=== PATIENT | male | born 1955 | race Two or more races ===

== ENCOUNTER → 2024-06-19 | Outpatient (CLI) | payer MEDICARE, MEDICAID, SELFPAY ==
[2024-06-19 12:01] LABS: Basophils % (Auto) 1 % (0-2.5); Eosinophils # (Auto) 0.2 Thou/mm3 (0.0-0.5); Eosinophils % (Auto) 3 % (0-10); Hematocrit 37.7 % (41.0-53.0); Hemoglobin 12.5 g/dL (13.5-16.0); Immature Granulocytes % (Auto) 1 % (0-0); Immature Granulocytes Auto 0.04 Thou/mm3 (0.00-0.00); Lymphocytes # (Auto) 1.7 Thou/mm3 (1.0-4.8); Lymphocytes % (Auto) 24 % (10-50); Mean Corpuscular HGB Conc 33.2 g/dl (31.0-37.0); Mean Corpuscular Hemoglobin 32.1 pg (25.0-35.0); Mean Corpuscular Volume 97 fL (80-100); Monocytes # (Auto) 0.5 Thou/mm3 (0.0-0.8); Monocytes % (Auto) 7 % (0-12); Neutrophils # (Auto) 4.8 Thou/mm3 (1.8-7.7); Neutrophils % (Auto) 65 % (37-80); Nucleated Red Blood Cell % 0 /100 WBC (0); Platelet Count 194 Thou/mm3 (140-440); RDW Standard Deviation 47.5 fL (35.1-43.9); White Blood Count 7.3 Thou/mm3 (3.8-10.6)
[2024-06-19 12:09] LABS: Glucose Estimated Average 140 mg/dL (80-131); Hemoglobin A1C 6.5 % Hgb (4.8-6.0)
[2024-06-19 12:23] LABS: Alanine Aminotransferase 14 U/L (10-49); Albumin, Serum 4.5 gm/dL (3.4-4.8); Albumin/Globulin Ratio 1.6 (1.2-2.2); Alkaline Phosphatase 190 U/L (46-116); Anion Gap 7 (7-16); Aspartate Amino Transferase < 8 U/L (0-34); BUN/Creatinine Ratio 5 Ratio (12-20); Bilirubin,Total 0.3 mg/dL (0.3-1.2); Blood Urea Nitrogen 44 mg/dL (9-23); Calcium 10.5 mg/dL (8.3-10.6); Calcium (Corrected) 10.5 mg/dL (8.5-10.1); Chloride 97 mMol/L (98-107); Creatinine (Component) 9.2 mg/dL (0.6-1.3); Globulin 2.8 gm/dL (2.3-3.5); Glucose 96 mg/dL (74-106); Osmolality,Calculated 281 (275-295); Potassium 5.6 mMol/L (3.4-5.1); Sodium 135 mMol/L (136-145); Total Protein 7.3 gm/dL (5.7-8.2); eGFR 6 See Note
== END | disposition home or self-care (01) ==
LOC: COPL 11:17
PROVIDERS: PCP Physician Assistant; Referring Provider Specialist; Visit Provider Specialist
DX: K40.30 Unilateral inguinal hernia, with obstruction, without gangrene, not specified as recurrent (principal)
CPT/HCPCS: 36415; 80053; 83036; 85025

== ENCOUNTER 2025-07-06 17:01 | Emergency (ER) | payer OTHER, MEDICAID, SELFPAY ==
[2025-07-06] VITALS (10 sets, daily range): BP systolic 151–181; BP diastolic 66–86; PULSE 70–90; RESP 14–20; TEMP 36.6–37.2; O2SAT 95–100; BMI 31.7
--- NOTE | 2025-07-06 17:10 | PD.EDHA ---
ED Headache RME/HPI General Chief Complaint: Headache Stated Complaint: HEADACHE Time Seen by Provider: 07/06/25 17:07 Arrival date/time: 07/06/25 17:01 Limitations: no limitations RME / HPI RME / HPI Narrative: DR. CHILDS MAIN ED EVALUATION: 69-year-old male presents with headache, hypertension, and right eye visual loss since Tuesday. He reports he was evaluated by a doctor and then by a neurologist and was told he has a retinal bleed behind his right eye. He reports headache associated with the visual changes. Blood glucose on arrival is 96. No other complaints. He has a history of hypercholesterolemia, hypertension, and diabetes. He lost vision in his left eye many years ago. Related Data Home Medications ?Medication ?Instructions ?Recorded ?Confirmed evolocumab 140 mg/mL subcutaneous 420 mg subcut QOWEEK 06/22/24 06/25/24 syringe (Repatha Syringe) insulin degludec 100 unit/mL (3 10 unit subcut HS 06/22/24 06/25/24 mL) subcutaneous pen (Tresiba FlexTouch U-100 insulin) sucroferric oxyhydroxide 500 mg 500 mg PO TID 06/22/24 06/25/24 chewable tablet (Velphoro) Previous Rx's ?Medication ?Instructions ?Recorded hydrocodone 10 mg-acetaminophen 1 tab PO Q6H PRN pain #28 tabs 06/25/24 325 mg tablet acetaminophen 300 mg-codeine 30 mg 2 tab PO Q8H PRN pain #20 tabs 07/06/25 tablet Allergies Allergy/AdvReac Type Severity Reaction Status Date / Time No Known Allergies Allergy Verified 06/25/24 09:48 Review of Systems Review of Systems Systems Reviewed: All systems reviewed, normal except as documented Past Medical History Past Medical History CARDIAC: Positive Cardiac Disorders, Hypercholesterolemia and Hypertension (no taking med anymore per Dr) GASTROINTESTINAL: Positive Gastrointestinal Disorders and Obesity GENITOURINARY: Positive Genitourinary Disorders, Renal Disease and Dialysis (M/W/F) MUSCULOSKELETAL: Positive Musculoskeletal Disorders ENT: Positive Cataracts (SHAUN HAD SURG 2016) ENDOCRINE: Positive Endocrine Disorders and Diabetes Mellitus Type 2 HEMATOLOGIC: Positive Blood Disorders and Anemia (hx) OTHER HISTORY: Positive Hospitalization (07/24 FOR KIDNEY FAILURE DIAG), Chicken Pox, Measles and Cancer (prostate) Family History FAMILY HISTORY: Positive Family Cardiac Disorders (FATHER) and Family Surgery Surgical History SURGICAL: Positive Cardiac Surgery, Vascular Surgery (Left upper arm AV fistula) and Bowel Surgery ([id number] tumor removal and part of intestine removed) Social History SMOKING STATUS: Never smoker SUBSTANCE USE: does not use ALCOHOL: Never ED Exam General Limitations: Present no limitations General appearance: Present alert and in no apparent distress Head Head exam: Present atraumatic, normocephalic and normal inspection Eye Eye exam: Present other (right eye congestion and tenderness noted) ENT ENT exam: Present normal exam, normal oropharynx and mucous membranes moist Neck Neck exam: Present normal inspection, full ROM and trachea midline Chest Chest inspection: Present normal inspection and symmetric chest wall rise Respiratory Respiratory exam: Present normal lung sounds bilaterally Cardiovascular Cardiovascular exam: Present regular rate, normal rhythm and normal heart sounds Abdominal Exam Abdominal exam: Present soft and normal bowel sounds Extremities Exam Extremities exam: Present normal inspection and full ROM Back Exam Back exam: Present normal inspection and full ROM Neurological Exam Neurological exam: Present alert, oriented X3 and CN II-XII intact Psychiatric Psychiatric exam: Present normal affect and normal mood Skin Skin exam: Present warm, dry, intact and normal color Course Quality Measures none Orders Category Date Time Status EKG (ED ONLY) *Do not use* NOW Care 07/06/25 17:[address] head/brain wo con Stat Exams 07/06/25 17:[address] orbit BI wo con Stat Exams 07/06/25 17:35 Completed CXRP [XR chest 1V portable] Stat Exams 07/06/25 17:16 Completed EKG (ED Only) Stat Exams 07/06/25 17:16 Ordered BNP [B-Type Natriuretic Peptide] Stat Lab 07/06/25 17:10 Completed CBC [CBC] Stat Lab 07/06/25 17:10 Completed CMP [Comprehensive Metabolic Panel] Stat Lab 07/06/25 17:10 Completed PTT [Partial Thromboplastin Time] Stat Lab 07/06/25 17:10 Completed Prothrombin Time with INR Stat Lab 07/06/25 17:10 Completed Troponin I Stat Lab 07/06/25 17:10 Completed UA, C/S IF [Urinalysis, C/S if Indicated] Stat Lab 07/06/25 21:00 Completed VBG [Venous Blood Gas] Stat Lab 07/06/25 17:10 Completed ACETAMINOPHEN w/COD 300-30 [Tylenol w/Cod #3] Med 07/07/25 00:29 Discontinued 2 tab PO X1 ONE ACETAzolaMIDE SOD [Diamox Inj] Med 07/06/25 17:36 Discontinued 500 mg IVP X1 ONE Brimonidine Op Nelida 0.1% [Alphagan Op Nelida 0.1%] Med 07/06/25 17:36 Discontinued 1 drop RIGHT EYE X1 ONE Cyclopentolate Op Nelida 1% [Cyclogyl Op Nelida 1%] Med 07/06/25 17:14 Discontinued 1 drop BOTH EYES X1 ONE Morphine* Inj Med 07/06/25 21:39 Discontinued 4 mg IV X1 ONE TETRACAINE Op Nelida 0.5% [Pontocaine Op Nelida 0.5%] Med 07/06/25 17:14 Discontinued 1 drop BOTH EYES X1 ONE Timoptic Op Nelida 0.5% Med 07/06/25 21:00 Discontinued 1 drop RIGHT EYE BID hydrALAZINE INJ [Apresoline Inj] Med 07/06/25 17:16 Discontinued 20 mg IVP X1 ONE Vital Signs Vital signs: Vital Signs Temperature 98.1 F 07/06/25 17:04 Pulse Rate 78 07/06/25 17:04 Respiratory Rate 18 07/06/25 17:04 Blood Pressure 177/81 H 07/06/25 17:04 Pulse Oximetry (%) 100 07/06/25 17:04 Oxygen Delivery Method Room Air 07/06/25 17:04 Headache MDM Narrative MDM Narrative:: Lorelei Abdullahi am scribing for and in the presence of Dr. Childs. 69-year-old male with right eye vision loss, headache, and hypertension since Tuesday. Exam notable for right eye congestion and tenderness. Differential diagnoses include retinal bleed, acute glaucoma, and intracranial bleed. Impression is sudden vision loss. EKG#1: Interpreted by me: sinus rhythm, rate 81, right bundle branch block Plan is to check intraocular pressure, order CT of the head, and lower blood pressure. Patient stable for continued evaluation. Assessment for hypertensive emergency, retinal detachment, and vision loss. Plan to give the following medications: Acetazolamide, Brimonidine, Timoptic, Cyclopentolate, Tetracaine, and Hydralazine. 1800: Patient was signed out to Dr. Richards. Past medical, surgical, social and family history reviewed. Vitals and home medications reviewed. Results and treatment plan discussed. They will assume the care of the patient at this time and will follow the patient, pending remainder of diagnostic tests and final disposition. Patient data External records reviewed:: [facility] previous records and EMS form Clinical information provided by:: patient and EMS Social determinants that could affect healthcare access:: none Patient has the following chronic illnesses:: He has a history of hypercholesterolemia, hypertension, and diabetes. He lost vision in his left eye many years ago. How is presenting disease/condition affected by chronic disease/condition?: exacerbated by Evaluation data The following diagnostics were reviewed and interpreted by me:: lab results, radiology exam(s) and EKG tracing(s) (EKG#1: Interpreted by me: sinus rhythm, rate 81, right bundle branch block) Lab and/or radiology exams considered but not ordered:: none Interpretation Summary: See MDM narrative above. Medications / Prescriptions Medications or Prescriptions considered but not ordered:: none Medication administrations:: Medication Administration History Discontinued Medications Acetaminophen/Codeine Phosphate (Acetaminophen W/Cod 300-30 Tablet) 2 tab PO X1 ONE Stop: 07/07/25 00:30 Last Admin: 07/07/25 00:40 Dose: 2 tab Documented By: JOE Acetazolamide Sodium (Acetazolamide Sod 500 Mg Vial) 500 mg IVP X1 ONE Stop: 07/06/25 17:37 Last Admin: 07/06/25 18:16 Dose: 500 mg Documented By: GERRY Brimonidine Tartrate (Brimonidine Op Nelida 0.1% 5 Ml Btl) 1 drop RIGHT EYE X1 ONE Stop: 07/06/25 17:37 Last Admin: 07/06/25 18:16 Dose: 1 drop Documented By: GERRY Comments: MD administered at bedside Cyclopentolate HCl (Cyclopentolate Op Nelida 1% 2 Ml Btl) 1 drop BOTH EYES X1 ONE Stop: 07/06/25 17:15 Last Admin: 07/06/25 17:26 Dose: 1 drop Documented By: GERRY Comments: administered by MD at bedside Hydralazine HCl (Hydralazine Inj 20 Mg/Ml Vial) 20 mg IVP X1 ONE Stop: 07/06/25 17:17 Last Admin: 07/06/25 17:24 Dose: 20 mg Documented By: GERRY Morphine Sulfate (Morphine Sulf Inj 4 Mg/Ml Vial) 4 mg IV X1 ONE Stop: 07/06/25 21:40 Last Admin: 07/06/25 21:51 Dose: 4 mg Documented By: JOE Tetracaine HCl (Tetracaine Pf Op Nelida 0.5% 4 Ml Drpette) 1 drop BOTH EYES X1 ONE Stop: 07/06/25 17:15 Last Admin: 07/06/25 17:25 Dose: 1 drop Documented By: GERRY Timolol Maleate (Timolol Op Nelida 0.5% 5 Ml Btl) 1 drop RIGHT EYE BID DARYL Stop: 08/05/25 20:59 Last Admin: 07/06/25 22:13 Dose: 1 drop Documented By: JOE see above if any Consultations Consultation(s) initiated? (list below): No Diagnosis Differential diagnosis headache: other (retinal bleed, acute glaucoma, and intracranial bleed) Most likely diagnosis given after review of the tests above:: No official diagnoses at this time, still pending diagnostic tests. Patient signout to the department head provider. Admission Indicated Admission indicated?: not indicated Explain why admission is indicated or not indicated:: No final disposition plan at this time, still pending diagnostic tests. Patient signout to the department head provider. Admission Request Was there a request for admission?: No Disposition Plan Disposition Plan: other (specify) (Patient signed out to Dr. Richards.) Discharge Plan Plan Patient Disposition: HOME (Self Care) Prescriptions/Referrals Prescriptions/Med Rec: New acetaminophen-codeine 300-30 mg tablet 2 tab PO Q8H MDD 6 PRN (Reason: pain) Qty: 20 0RF No Action insulin degludec [Tresiba FlexTouch U-100] 100 unit/mL (3 mL) insulin pen 10 unit SUBCUT HS Velphoro 500 mg Tablet,Chewable 500 mg PO TID Repatha Syringe 140 mg/mL Syringe 420 mg SUBCUT QOWEEK hydrocodone-acetaminophen 10-325 mg tablet 1 tab PO Q6H MDD 4 PRN (Reason: pain) Qty: 28 0RF Referrals: Kalyan Gamble [Primary Care Provider] - In 1 week Problem List Clinical Impression: Vision loss of right eye Patient/Caregiver Discharge Instructions Discharge Activity: activity as tolerated Education Materials: ED Glaucoma, Narrow-Angle (Acute), ED Glaucoma, Open-Angle (Chronic) Additional Instructions: Instrucciones de joanne del Dr. Richards impresas para usted: 1. Despu?s de janice evaluaci?n exhaustiva, no se detect? ninguna afecci?n que ponga en peligro quispe mimi de inmediato. Micki un derrame cerebral o un tumor cerebral. 2. Quispe p?rdida de visi?n en el vangie derecho puede deberse a glaucoma. Consulte los folletos adjuntos. 3. Analizamos quispe harriett (incluidos todos los resultados de las pruebas de diagn?stico) con el Dr. Glynn Molina (especialista en oftalmolog?a del [facility] en [place]). No es necesario un traslado de emergencia. Jamie ?l la atender? en quispe consultorio ma?guillermo (jone) a las 9:30 AM. [address] [place] [address] (ma?guillermo es jone, por lo que nadie contestar?) El Dr. Molina tiene quispe n?trent de tel?fono ([phone]). Si la llama, p?heather a alguien que hable ingl?s que le traduzca. 4. Consulte con quispe m?dico de cabecera el de diciembre 2024 para janice revisi?n y seguimiento. Solicite revisar todos los resultados de las pruebas y los informes radiol?gicos oficiales para asegurarse de recibir todo el seguimiento y la monitorizaci?n necesarios. 5. Busque atenci?n m?dica inmediata si payam s?ntomas empeoran o si tiene alguna inquietud. Discharge Instructions from Dr. Richards printed for you: 1. After extensive evaluation, there is no immediately life-threatening condition. Such as stroke or brain tumor. 2. Your right vision loss may be due to glaucoma. See attached handouts. 3. We discussed your case (including all diagnostic test results) with Dr. Glynn Molina (plant controls specialist at [facility] in [place]). No emergent transfer necessary. But he will see you in his office tomorrow (Tuesday) at 9:[address] [place] [address] [place] [address] (tomorrow is Tuesday so no one will answer) Dr. Molina has your number ([phone]). If he calls, please have someone who speaks Canadian translate for you. 4. See your primary care doctor on 07/08/2025 for recheck and further care. Ask to review all test results and official radiology reports, to make sure you receive all necessary follow-ups and monitoring. 5. Seek immediate medical care with worsening or with any concerns. Print Language: Upper Sorbian Stand Alone Forms: Ev Award Info., Patient Portal Info Letter
--- NOTE | 2025-07-06 17:16 | XR_ITS ---
EXAMINATION: AP chest single view TECHNIQUE: AP portable upright chest single view Date and time: July 06, 2025, 1730 hours, comparison July 18, 2017 INDICATIONS: Headache altered mental status today shortness of breath FINDINGS: Mild enlargement cardiac contour Moderate vascular congestion. No aspiration pneumonia. No iraj pulmonary edema Prominent osteopenia IMPRESSION: Mild enlargement cardiac contour with moderate vascular congestion
--- NOTE | 2025-07-06 17:16 | XR_ITS ---
Examination: CT brain head without contrast. 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 Contrast has not been administered. 2-D sagittal, coronal reconstructions have been obtained Low dose protocols were performed. One or more of the following dose reduction techniques were used; automated exposure control, adjustment of the mA and/or KV according to patient size, use of iterative reconstruction technique. Findings: No significant ventricular enlargement. Intra-axial or extra-axial hemorrhage density is not seen. No mass effect or midline shift Basal cisterns are not remarkable. Fourth ventricle is midline. Cranial vault intact. Impression: Negative for acute hemorrhage, mass effect or midline shift Given the patient's presentation, recommend brain MRI/MRA without contrast follow-up
[2025-07-06] MEDS: hydrALAZINE INJ 20 MG/ML VIAL IVP (17:24)
[2025-07-06] MEDS: TETRACAINE PF OP SOL 0.5% 4 ML DRPETTE 1 DROP BOTH EYES (17:25)
[2025-07-06] MEDS: CYCLOPENTOLATE 1% 1 DROP BOTH EYES (17:26)
--- NOTE | 2025-07-06 17:35 | XR_ITS ---
Examination: CT bilateral orbits, without contrast. 2-D sagittal reconstructions. 2-D coronal reconstructions. 3-D reconstructions. 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 2-D sagittal and coronal reconstructions have been obtained. 3-D reconstructions have been obtained. Low dose protocols were performed. One or more of the following dose reduction techniques were used; automated exposure control, adjustment of the mA and/or KV according to patient size, use of iterative reconstruction technique. Findings: Symmetrical optic globes Symmetrical optic nerves Ophthalmic musculature not enlarged. No retro-orbital mass lesion Bony davis of the orbit intact Moderate chronic ethmoid sinusitis IMPRESSION: Symmetrical optic globes, no retro-orbital mass lesion Given the patient's presentation, consider brain MRI MRA without contrast follow-up
[2025-07-06 17:38] LABS: Base Excess, Venous 7 (-3-3); O2 Saturation, Venous 53 % (96-97); PCO2, Venous 51 mmHg (36-56); PO2, Venous 28 mmHg (15-58); pH, Venous 7.42 (7.33-7.66)
[2025-07-06 17:40] LABS: Basophils # (Auto) 0.1 Thou/mm3 (0.0-0.2); Basophils % (Auto) 1 % (0-2.5); Eosinophils # (Auto) 0.2 Thou/mm3 (0.0-0.5); Eosinophils % (Auto) 3 % (0-10); Hematocrit 31.8 % (41.0-53.0); Hemoglobin 11.1 g/dL (13.5-16.0); Immature Granulocytes Auto 0.03 Thou/mm3 (0.00-0.00); Lymphocytes # (Auto) 1.6 Thou/mm3 (1.0-4.8); Lymphocytes % (Auto) 20 % (10-50); Mean Corpuscular HGB Conc 34.9 g/dl (31.0-37.0); Mean Corpuscular Hemoglobin 33.0 pg (25.0-35.0); Mean Corpuscular Volume 95 fL (80-100); Monocytes # (Auto) 0.6 Thou/mm3 (0.0-0.8); Monocytes % (Auto) 8 % (0-12); Neutrophils # (Auto) 5.6 Thou/mm3 (1.8-7.7); Neutrophils % (Auto) 69 % (37-80); Nucleated Red Blood Cell # 0.00 Thou/mm3 (0.00-0.00); Nucleated Red Blood Cell % 0 /100 WBC (0); Platelet Count 208 Thou/mm3 (140-440); RDW Standard Deviation 43.7 fL (35.1-43.9); Red Blood Count 3.36 Miln/mm3 (4.50-5.90); White Blood Count 8.1 Thou/mm3 (3.8-10.6)
[2025-07-06 17:58] LABS: INR 1.0 (0.9-1.3); Partial Thromboplastin Time 27.1 Seconds (22.0-36.0); Prothrombin Time 10.3 Seconds (9.0-12.2)
[2025-07-06 18:05] LABS: B-Type Natriuretic Peptide 156 pg/mL (0-100)
[2025-07-06] MEDS: BRIMONIDINE OP SOL 0.1% 5 ML BTL 1 DROP RIGHT EYE (18:16)
[2025-07-06 18:37] LABS: Alanine Aminotransferase 8 U/L (10-49); Albumin, Serum 4.7 gm/dL (3.4-4.8); Albumin/Globulin Ratio 1.5 (1.2-2.2); Alkaline Phosphatase 168 U/L (46-116); Anion Gap 12 (7-16); Aspartate Amino Transferase < 8 U/L (0-34); BUN/Creatinine Ratio 4 Ratio (12-20); Bilirubin,Total 0.2 mg/dL (0.3-1.2); Blood Urea Nitrogen 37 mg/dL (9-23); Calcium 9.5 mg/dL (8.3-10.6); Calcium (Corrected) 9.5 mg/dL (8.5-10.1); Carbon Dioxide 30.9 mMol/L (20.0-31.0); Chloride 92 mMol/L (98-107); Creatinine (Component) 8.6 mg/dL (0.6-1.3); Estimated Creatinine Clearance 8.2 mL/min (>60); Globulin 3.1 gm/dL (2.3-3.5); Glucose 118 mg/dL (74-106); Osmolality,Calculated 279 (275-295); Potassium 4.5 mMol/L (3.4-5.1); Sodium 135 mMol/L (136-145); Total Protein 7.8 gm/dL (5.7-8.2); Troponin I < 0.020 ng/mL (0.0-0.045); eGFR 6 See Note
--- NOTE | 2025-07-06 18:44 | EDNOTE_ITS ---
Emergency Room Addendum Addendum Narrative: I took over the care from previous shift physician, Dr. Childs, at 6 PM on 07/06/2025. See previous notes for complete H & P and ED course. I reviewed all diagnostic test results. My interpretation of the chest x-ray is NAD. My review of the head CT report is NAD. My review of the orbits CT report is NAD. Blood tests and urine tests remarkable for Cr 8.6. Diagnoses include: Right sided visual loss with pain ESRD I discussed the case with our telehealth neurologist. About the presentation and exam and diagnostics and treatments here. Recommended transfer for ophthalmology care. I discussed the case with Dr. Glynn Molina ([facility] Atmospheric Physicist).? About the presentation and exam and diagnostics and treatments here.? And possible need of further care there. Recommended outpatient follow-up with him tomorrow, on July 07, 2025. Based on my best medical judgment, made decision no further evaluation or treatment indicated at this time.? Patient and granddaughter understands and agrees to the discharge instructions customized and printed, see below. Instrucciones de joanne del Dr. Richards impresas para usted: 1. Despu?s de janice evaluaci?n exhaustiva, no se detect? ninguna afecci?n que ponga en peligro quispe mimi de inmediato. Micki un derrame cerebral o un tumor cerebral. 2. Quispe p?rdida de visi?n en el vangie derecho puede deberse a glaucoma. Consulte los folletos adjuntos. 3. Analizamos quispe harriett (incluidos todos los resultados de las pruebas de diagn?stico) con el Dr. Glynn Molina (especialista en oftalmolog?a del [facility] en [place]). No es necesario un traslado de emergencia. Jamie ?l la atender? en quispe consultorio audrey?guillermo (jone) a las 9:30 AM. [facility] [address] [address] (audrey?guillermo es jone, por lo que nadie contestar?) El Dr. Molina tiene quispe n?trent de tel?fono ([phone]). Si la llama, p?heather a alguien que hable ingl?s que le traduzca. 4. Consulte con quispe m?dico de cabecera el diciembre 2024 para janice griselda i?n y seguimiento. Solicite revisar todos los resultados de las pruebas y los informes radiol?gicos oficiales para asegurarse de recibir todo el seguimiento y la monitorizaci?n necesarios. 5. Busque atenci?n m?dica inmediata si payam s?ntomas empeoran o si tiene alguna inquietud. Discharge Instructions from Dr. Richards printed for you: 1. After extensive evaluation, there is no immediately life-threatening condition. Such as stroke or brain tumor. 2. Your right vision loss may be due to glaucoma. See attached handouts. 3. We discussed your case (including all diagnostic test results) with Dr. Glynn Molina (agricultural specialist at [facility] in [place]). No emergent transfer necessary. But he will see you in his office tomorrow (Tuesday) at 9:[address] [place] [address] (tomorrow is Tuesday so no one will answer) Dr. Molina has your number ([phone]). If he calls, please have someone who speaks Bengali translate for you. 4. See your primary care doctor on 07/08/2025 for recheck and further care. Ask to review all test results and official radiology reports, to make sure you receive all necessary follow-ups and monitoring. 5. Seek immediate medical care with worsening or with any concerns. Kwaku Richards MD
[2025-07-06 21:07] LABS: Collection Type, Urine Clean Catch
--- NOTE | 2025-07-06 21:07 | PD.TNEURO ---
Tele Neuro Consultation Consultation Date 07/06/25 Most Recent Vital Signs Last Vital Signs Temp 97.8 F 07/06/25 18:01 Pulse 83 07/06/25 20:51 Resp 16 07/06/25 20:51 BP 151/74 H 07/06/25 20:51 Pulse Ox 95 07/06/25 20:51 O2 Del Method Room Air 07/06/25 20:51 Laboratory-Coagulation Panel PT 10.3 Seconds (9.0-12.2) 07/06/25 17:10 INR 1.0 (0.9-1.3) 07/06/25 17:10 APTT 27.1 Seconds (22.0-36.0) 07/06/25 17:10 Consultation Narrative [facility] TeleNeurology Consult Services Stat Consult Patient Name:???JOSE MIGUEL MCLEAN Date of :???1955 Identification Number:??? Date of Service:???07/06/2025 17:58:58 Diagnosis:?H53.9 - Visual disturbance, unspecified Impression This is a 69 year old man with history of chronic kidney disease, hypertension, and hyperlipidemia here with right eye visual loss and headache. My ability to assess ophthalmological conditions is limited given that I am seeing the patient remotely. Given the patient's report that he cannot see- at all- and- given that his eye appeared abnormal ( angry ) when evaluated by the initial ED doctor- I do recommend that he be transferred to a facility with ophthalmology available Recommendations: Our recommendations are outlined below. Dispositions :Neurology will follow Miscellaneous :Recommend emIergent transfer for ophthalmology evaluation I did use an translator interpreter when seeing the patient- this was accessed via AV equipment Metrics: Callback Response Time: 07/06/2025 18:03:01 Primary Provider Notified of Diagnostic Impression and Management Plan on: 07/06/2025 20:50:12 Chief Complaint: visual loss headache History of Present Illness:Patient is a 69 year old Male. This is a 69 year old man with history of chronic kidney disease, hypertension, and hyperlipidemia here with right eye visual loss and headache. Initially he stated that his headache started yesterday. (the day prior to presentation- presented on a Tuesday). Then he stated that he had headache Tuesday and visual loss in his right eye on Tuesday. The patient stated that he has not been able to see with his left eye- for two years. He stated that he has no vision- all he sees is black. Per ED note- he was evaluated by a doctor and then a neurologist and was told he has a retinal bleed behind his right eye. I happened to see this note after speaking with the patient; he did not mention anything about seeing a physician earlier this week about his symptoms. The ED doctor who saw him initially was no longer in the ED- the ED doctor with whom I spoke did mention that an attempt to get an intraocular pressure was made- but this was unsuccessful. Per discussion with the ED doctor on service when I saw the patient- the initial ED doctor had noted that the eye appeared angry. Past Medical History: ?Hypertension ?Hyperlipidemia Other PMH:? history of chronic kidney disease, hypertension, and hyperlipidemia Medications: Anticoagulant use:??Unknown Antiplatelet use:?Unknown Reviewed EMR for current medications Other Medications Pertinent To Assessment Include: no antiplatelet or anticoagulation listed on the patient's list in [facility] Allergies:? Reviewed Social History: Drug Use: No Family History: There is no family history of premature cerebrovascular disease pertinent to this consultation ROS : 14 Points Review of Systems was performed and was negative except mentioned in HPI. Past Surgical History: There Is No Surgical History Contributory To Today?s Visit Examination: BP(151/74),?Pulse(83), 1A: Level of Consciousness - Alert; keenly responsive?+ 0 1B: Ask Month and Age - Both Questions Right?+ 0 1C: Blink Eyes & Squeeze Hands - Performs Both Tasks?+ 0 2: Test Horizontal Extraocular Movements - Normal?+ 0 3: Test Visual Castro - Bilateral Hemianopia?+ 3 4: Test Facial Palsy (Use Grimace if Obtunded) - Normal symmetry?+ 0 5A: Test Left Arm Motor Drift - No Drift for 10 Seconds?+ 0 5B: Test Right Arm Motor Drift - No Drift for 10 Seconds?+ 0 6A: Test Left Leg Motor Drift - No Drift for 5 Seconds?+ 0 6B: Test Right Leg Motor Drift - No Drift for 5 Seconds?+ 0 7: Test Limb Ataxia (FNF/Heel-Quesada) - No Ataxia?+ 0 8: Test Sensation - Normal; No sensory loss?+ 0 9: Test Language/Aphasia - Normal; No aphasia?+ 0 10: Test Dysarthria - Normal?+ 0 11: Test Extinction/Inattention - No abnormality?+ 0 NIHSS Score:?3 NIHSS Free Text :?Did not assess finger nose finger- patient cannot see Spoke with :?Dr Richards This consult was conducted in real time using interactive audio and video technology. Patient was informed of the technology being used for this visit and agreed to proceed. Patient located in hospital and provider located at home/office setting. Patient is being evaluated for possible acute neurologic impairment and high probability of imminent or life - threatening deterioration.I spent total of 41 minutes providing care to this patient, including time for face to face visit via telemedicine, review of medical records, imaging studies and discussion of findings with providers, the patient and / or family. Dr Ailin Perera [facility] For Inpatient follow-up with [facility] physician please call [facility] at . As we are not an outpatient service for any post hospital discharge needs please contact the hospital for assistance. If you have any questions for the [facility] physicians or need to reconsult for clinical or diagnostic changes please contact us via [facility] at . Non-radiologist review of imaging performed to assist with emergent clinical decision-making. Remote physician workstations do not possess the same resolution, calibration, or diagnostic capabilities as hospital-based radiology reading stations, and formal radiologist read is necessary. Signature :?Ailin Perera
[2025-07-06 21:15] LABS: Bilirubin,Urine Negative (Negative); Blood,Urine Negative (Negative); Clarity,Urine Clear (Clear/Hazy); Color,Urine Colorless (Lt Yel-Yel); Culture Indicated,Urine Not Indicated; Glucose, Urine 2+ (Negative); Ketones,Urine Negative (Negative); Leukocyte Esterase,Urine Negative (Negative); Nitrite,Urine Negative (Negative); PH,Urine 8.0 (5.0-7.0); Protein,Urine 2+ (Neg - Trace); RBC,Urine < 1 /hpf (0-3); Specific Gravity,Urine 1.009 (1.001-1.035); Squamous Epithelial Cell,Urine 1 /hpf (0-5); Urobilinogen,Urine Negative mg/dL (0.0-1.0); WBC,Urine 1 /hpf (0-5)
[2025-07-06] MEDS: MORPHINE SULF INJ 4 MG/ML VIAL IV (21:51)
[2025-07-06] MEDS: TIMOLOL OP SOL 0.5% 5 ML BTL 1 DROP RIGHT EYE (22:13)
--- NOTE | 2025-07-06 22:21 | PC.NURSE ---
[facility] contacted for possible ophthalmology transfer. Images pushed and clinicals faxed. [facility] faxed over clinicals- stated they do not have ophthalmology. [facility] faxed over clinicals but they were unable to be reached to initiate transfer
[2025-07-07 00:27] VITALS: BP 153/76; PULSE 87; RESP 13; O2SAT 95
[2025-07-07] MEDS: ACETAMINOPHEN w/COD 300-30 TABLET 2 TAB PO (00:40)
== END 2025-07-07 00:50 | disposition home or self-care (01) ==
PROVIDERS: Emergency Medicine; Emergency Provider Emergency Medicine; PCP Physician Assistant
DX: H54.61 Unqualified visual loss, right eye, normal vision left eye (principal); R51.9 Headache, unspecified; R41.82 Altered mental status, unspecified; R06.02 Shortness of breath; I12.0 Hypertensive chronic kidney disease with stage 5 chronic kidney disease or end stage renal disease; E11.22 Type 2 diabetes mellitus with diabetic chronic kidney disease; N18.6 End stage renal disease; Z79.4 Long term (current) use of insulin
CPT/HCPCS: 36415; 70450; 70480; 71045; 80053; 81001; 82803; 83880; 84484; 85025; 85610; 85730; 93005; 96374; 96375; 99284; J0360; J1120; J2270; A9270